=== PATIENT | female | born 1940 | race African-American/Black ===

== ENCOUNTER 2017-04-23 17:54 | Emergency (ER) | payer MEDICARE, OTHER ==
[~2017-04-23] VITALS: Ht 157.5 cm; Wt 95.3 kg
[~2017-04-23 17:54] MED LIST: ACET-868 GT; AMLO10TA2 GT; ASPI325T2 GT; ASPI81TA2 PO; ATOR80TA GT; BISA10SU8 RC; CLON0.1T GT; CRAN3875 GT; D3 GT; DEXT1CAP3 GT; DEXT38GE12 PO; DEXTROSE 50% IV; DOCU-170 GT; ESCI5SOL GT; HEPA50008 IJ; HYDR-3326 GT; MAGN400O6 GT; METO100T3 GT; MULT-70 GT; NA P133E RC; OSCAL GT; SENN-18 GT; VALS320T13 GT
--- NOTE | 2017-04-23 18:10 | NUR ---
RECEIVED REPORT AT THIS TIME. HERE FOR "SEIZURE WHILE AT THE FACILITY". POSTICTAL AT THIS TIME. RESP EVEN AND UNLABORED. NON DIAPHORETIC. RESP EVEN AND UNLABORED. ON MONITOR AND O2. SEIZURE PRECS IN PLACE. HERBERT CONTINUE TO MONIOR.
[2017-04-23 18:45] LABS: BASOPHILS # (AUTO) 0.4 /CMM (0.0-0.2); BASOPHILS % (AUTO) 3.6 % (0.0-2.0); EOSINOPHILS % (AUTO) 0.2 % (0.0-6.0); HEMATOCRIT 44 % (33-45); HEMOGLOBIN 14.6 g/dL (11.5-14.8); LYMPHOCYTES # (AUTO) 1.1 /CMM (0.8-4.8); LYMPHOCYTES % (AUTO) 9.3 % (20.0-44.0); MEAN CORPUSCULAR HEMOGLOBIN 30 PG (26.0-33.0); MEAN CORPUSCULAR HGB CONC 33 g/dl (31.0-36.0); MEAN CORPUSCULAR VOLUME 90 fL (82-100); MONOCYTES # (AUTO) 0.8 /CMM (0.1-1.30); NEUTROPHILS # (AUTO) 9.2 /CMM (1.8-8.9); NEUTROPHILS % (AUTO) 79.9 % (43.0-81.0); PLATELET COUNT (AUTO) 290 /CMM (150-450); RDW COEFFICIENT OF VARIATION 14.5 (11.5-15.0); RED BLOOD CELL COUNT(AUTO) 4.88 MIL/uL (4.0-5.2); WHITE BLOOD COUNT (AUTO) 11.5 K/uL (4.3-11.0)
[2017-04-23 18:52] LABS: CALCIUM, SERUM 9.6 mg/dL (8.5-10.1); CARBON DIOXIDE 27 mmol/L (21-32); CHLORIDE 102 mmol/L (98-107); CREATININE 0.9 mg/dL (0.6-1.3); GLUCOSE 105 mg/dL (74-106); POTASSIUM 3.9 mmol/L (3.5-5.1); SODIUM SERUM 139 mmol/L (136-145); UREA NITROGEN, BLOOD 12 mg/dL (7-18)
[2017-04-23 18:55] LABS: INR 1.03 (0.87-1.13); PROTHROMBIN TIME 10.7 SECS (9.5-12.7)
[2017-04-23 18:57] LABS: ALANINE AMINOTRANSFERASE 12 U/L (12-78); ALBUMIN 3.4 g/dL (3.4-5.0); ALKALINE PHOSPHATASE 114 U/L (46-116); ASPARTATE AMINOTRANSFERASE 20 U/L (15-37); BILIRUBIN,DIRECT 0.1 mg/dL (0.0-0.2); BILIRUBIN,TOTAL 0.6 mg/dL (0.2-1.0); TOTAL PROTEIN, SERUM 8.8 g/dL (6.4-8.2)
--- NOTE | 2017-04-23 19:30 | NUR ---
IN AND OUT TRUJILLO DONE ORDERED
[2017-04-23 20:01] LABS: APPEARANCE,URINE Clear (CLEAR); BILIRUBIN,URINE Negative (NEGATIVE); BLOOD, URINE Moderate Ery/uL (NEGATIVE); COLOR,URINE Yellow (YELLOW); KETONES,URINE Negative (NEGATIVE); LEUKOCYTE ESTERASE ,URINE Trace (NEGATIVE); NITRITE, URINE Negative (NEGATIVE); PROTEIN,URINE 30 mg/dl (NEGATIVE); UGLUCOSE Negative (NEGATIVE); UROBILINOGEN,URINE 0.2 EU/dL (0.2)
[2017-04-23 20:25] LABS: BACTERIA,URINE Few /HPF (None Seen); SQUAMOUS EPITHELIAL CELL,UR Moderate /HPF (None Seen)
--- NOTE | 2017-04-23 20:30 | NUR ---
VITAL SIGNS UPDATED.
--- NOTE | 2017-04-23 20:45 | NUR ---
ETA 20 MIN
--- NOTE | 2017-04-23 21:45 | NUR ---
REPORT GIVEN TO RN FOR NERY
[2017-04-23 21:46] VITALS: BP 164/96
--- NOTE | 2017-04-23 21:46 | NUR ---
REORT GIVEN TO EMT FOR NERY. PT TRANPORTED TO SNF VIA AMBULANCE. IV removed. Catheter intact and site benign. Pressure and 4x4 applied to site. No bleeding noted.Patient discharged to home in stable condition. Written and verbal after care instructions given. Patient verbalizes understanding of instruction.
== END 2017-04-23 21:47 | disposition home or self-care (01) ==
LOC: ER 17:58
DX: N39.0 Urinary tract infection, site not specified (principal); G40.909 Epilepsy, unspecified, not intractable, without status epilepticus; E11.9 Type 2 diabetes mellitus without complications; E78.5 Hyperlipidemia, unspecified; F32.9 Major depressive disorder, single episode, unspecified; G93.89 Other specified disorders of brain; I10 Essential (primary) hypertension; Z79.82 Long term (current) use of aspirin; Z86.73 Personal history of transient ischemic attack (TIA), and cerebral infarction without residual deficits; Z88.0 Allergy status to penicillin
CPT/HCPCS: 36415; 70450-TC; 71010-TC; 80048-TC; 80076-TC; 81000-TC; 85025-TC; 85730-TC; 87086-TC; A4606; J7050; Q9967; Z7610

== ENCOUNTER 2018-09-26 17:25 | Emergency (ER) | payer OTHER ==
[~2018-09-26] VITALS: Ht 165.1 cm; Wt 125.6 kg
[~2018-09-26 17:25] MED LIST changes: -AMLO10TA2 GT; +AMLO10TA7 GT; +ASPI-1169 PO; +ASPI-992 GT; -ASPI325T2 GT; -ASPI81TA2 PO; -DOCU-170 GT; +DOCU100C36 GT; -HYDR-3326 GT; +HYDR-3974 GT; +METO100T14 GT; -METO100T3 GT; +MULT-594 GT; -MULT-70 GT; -VALS320T13 GT; +VALS320T16 GT
--- NOTE | 2018-09-26 17:43 | NUR ---
HARISH MENDEZ [facility], SENT BY DR CARDOSO FOR FURTHER EVAL, PER REPORT, C/O "GENERALIZED BODY AND FACIAL PAIN." TO ER BED 3, HOOKED TO MONITOR, CHANGED TO GOWN, AWAITING MD NEWTON
--- NOTE | 2018-09-26 17:52 | NUR ---
DR DOUGHERTY AT BEDSIDE
--- NOTE | 2018-09-26 18:12 | NUR ---
PT REFUSES BLOOD DRAW, INSERTION OF PERIPHERAL IV LINE AND URINE COLLECTION. MADE AWARE
--- NOTE | 2018-09-26 18:15 | NUR ---
PAGED DR CARDOSO
--- NOTE | 2018-09-26 18:25 | NUR ---
DR CARDOSO, PTS PRIMARY SPOKE TO DR DOUGHERTY REGARDING PTS CASE
[2018-09-26] MEDS ORDERED: HALOPERIDOL LACTATE INJ 5 MG/ML VIAL ONE (18:29)
[2018-09-26] MEDS ORDERED: HALOPERIDOL LACTATE INJ 5 MG/ML VIAL IM ONE (18:30)
--- NOTE | 2018-09-26 18:50 | NUR ---
ATTEMPTED TO START A INTRAVENOUS LINE, PT STILL REFUSING. MADE MD AWARE, VERBAL ORDER OF ATIVAN 2M IM.
[2018-09-26] MEDS ORDERED: LORAZEPAM INJ 2 MG/ML VIAL ONE (18:56)
[2018-09-26] MEDS ORDERED: LORAZEPAM INJ 2 MG/ML VIAL IM ONE (19:00)
--- NOTE | 2018-09-26 19:26 | NUR ---
REPORT GIVEN TO BARI COSTA FOR NERY
[2018-09-26 20:26] LABS: BASOPHILS # (AUTO) 0.1 /CMM (0.0-0.2); BASOPHILS % (AUTO) 0.7 % (0.0-2.0); HEMATOCRIT 40 % (33-45); HEMOGLOBIN 13.2 g/dL (11.5-14.8); LYMPHOCYTES # (AUTO) 1.9 /CMM (0.8-4.8); LYMPHOCYTES % (AUTO) 26.2 % (20.0-44.0); MEAN CORPUSCULAR HGB CONC 33 g/dl (31.0-36.0); MEAN CORPUSCULAR VOLUME 93 fL (82-100); MONOCYTES # (AUTO) 0.6 /CMM (0.1-1.30); MONOCYTES % (AUTO) 8.8 % (2.0-12.0); NEUTROPHILS # (AUTO) 4.6 /CMM (1.8-8.9); NEUTROPHILS % (AUTO) 62.3 % (43.0-81.0); PLATELET COUNT (AUTO) 299 /CMM (150-450); RED BLOOD CELL COUNT(AUTO) 4.28 MIL/uL (4.0-5.2); WHITE BLOOD COUNT (AUTO) 7.3 K/uL (4.3-11.0)
[2018-09-26 20:34] LABS: CALCIUM, SERUM 9.5 mg/dL (8.5-10.1); CARBON DIOXIDE 30 mmol/L (21-32); CHLORIDE 102 mmol/L (98-107); CREATININE 0.9 mg/dL (0.6-1.3); GLUCOSE 108 mg/dL (74-106); POTASSIUM 3.8 mmol/L (3.5-5.1); SODIUM SERUM 134 mmol/L (136-145); UREA NITROGEN, BLOOD 11 mg/dL (7-18)
[2018-09-26 20:40] LABS: ALANINE AMINOTRANSFERASE 18 U/L (12-78); ALBUMIN 3.3 g/dL (3.4-5.0); ALKALINE PHOSPHATASE 116 U/L (46-116); ASPARTATE AMINOTRANSFERASE 22 U/L (15-37); BILIRUBIN,DIRECT 0.1 mg/dL (0.0-0.2); BILIRUBIN,TOTAL 0.5 mg/dL (0.2-1.0); TOTAL PROTEIN, SERUM 8.9 g/dL (6.4-8.2)
[2018-09-26 20:48] LABS: APPEARANCE,URINE Clear (CLEAR); BILIRUBIN,URINE Negative (NEGATIVE); BLOOD, URINE Negative Ery/uL (NEGATIVE); COLOR,URINE Yellow (YELLOW); KETONES,URINE Negative (NEGATIVE); LEUKOCYTE ESTERASE ,URINE Negative (NEGATIVE); NITRITE, URINE Negative (NEGATIVE); PH,URINE 6.5 (5.0-8.0); PROTEIN,URINE Negative (NEGATIVE); UGLUCOSE Negative (NEGATIVE); UROBILINOGEN,URINE 0.2 EU/dL (0.2)
[2018-09-26] MEDS ORDERED: IOHEXOL-300 100 ML VIAL IV ONE (21:01)
--- NOTE | 2018-09-26 23:10 | NUR ---
Patient is resting comfortably in bed with eyes closed. Easily aroused. VSS
--- NOTE | 2018-09-27 00:12 | NUR ---
RECEIVED CALL FROM [employer] THEY SPOKE TO [employer]OR VISHNU WHO ONLY GAVE AUTH FOR OBSERVATION AND NOT INPATIENT STAY. ER MD RAMON MADE AWARE. DR CARDOSO IS BEING PAGED
--- NOTE | 2018-09-27 00:17 | NUR ---
Patient is resting comfortably in bed with eyes closed. Easily aroused. VSS
--- NOTE | 2018-09-27 00:20 | NUR ---
PER PMD WALKER PT OKAY TO BE DISCHARGED BACK HOME/FACILITY.
--- NOTE | 2018-09-27 00:24 | NUR ---
GIANNI MARTINEZ CALLED FOR MEDICAL OFFICE REPRESENTATIVE. [id number] MEDICAL OFFICE REPRESENTATIVE TIME TRIP #[id number]
--- NOTE | 2018-09-27 03:55 | NUR ---
CALLED JYOTI PEREIRA TO INFORM OF PATIENT ARRIVAL. SPOKE WITH GARTH COSTA.
[2018-09-27 03:58] VITALS: BP 120/77
== END 2018-09-27 04:17 | disposition home or self-care (01) ==
LOC: EDUNIT# 17:25 → ER 17:28
DX: R51 Headache (principal); I10 Essential (primary) hypertension; E78.5 Hyperlipidemia, unspecified; E11.9 Type 2 diabetes mellitus without complications; F32.9 Major depressive disorder, single episode, unspecified; Z93.1 Gastrostomy status; Z88.0 Allergy status to penicillin; Z88.5 Allergy status to narcotic agent; Z86.73 Personal history of transient ischemic attack (TIA), and cerebral infarction without residual deficits; Z79.82 Long term (current) use of aspirin; Z79.899 Other long term (current) drug therapy
CPT/HCPCS: 36415; 71045-TC; 80048-TC; 80076-TC; 81000-TC; 83605-TC; 84484-TC; 85025-TC; 85730-TC; 87040-TC; 87086-TC; J1630; J2060; Q9967